=== PATIENT | male | born 1980 | race Caucasian/White ===

== ENCOUNTER 2017-10-17 22:19 | Emergency (ER) | payer BC ==
[2017-10-18] MEDS ORDERED: cefTRIAXone 1 GM, Lidocaine 1% 2.1 ML IM ONE ×2 (00:15)
--- NOTE | 2017-10-18 00:15 | EDM.PDOC ---
ED HPI GENERAL MEDICAL PROBLEM - General Chief Complaint: Neck Problem Stated Complaint: NECK IS SWOLLEN, [id number] Time Seen by Provider: 10/17/17 22:30 Source of Information: Reports: Patient - History of Present Illness INITIAL COMMENTS - FREE TEXT/NARRATIVE: C/O cold x 2 weeks, today noted sore spot under right jaw and tonight face swollen, mild sore throat, no ear pain. O known fever. Right Neck Pain Score (Numeric/FACES): 5 - Related Data Allergies Allergy/AdvReac Type Severity Reaction Status Date / Time No Known Allergies Allergy Verified 10/17/17 22:24 Home Meds: Home Meds . [No Known Home Meds] 10/17/17 [History] Past Medical History - Past Health History Medical/Surgical History: Denies Medical/Surgical History Social & Family History - Tobacco Use Smoking Status *Q: Never Smoker Second Hand Smoke Exposure: No - Recreational Drug Use Recreational Drug Use: No ED ROS ENT - Review of Systems Review Of Systems: See Below Constitutional: Reports: No Symptoms HEENT: Reports: Throat Pain (mild), Other (right lwer facial swelling) Respiratory: Reports: No Symptoms Cardiovascular: Reports: No Symptoms GI/Abdominal: Reports: No Symptoms Musculoskeletal: Reports: No Symptoms Skin: Reports: No Symptoms ED EXAM, ENT - Physical Exam Exam: See Below Exam Limited By: No Limitations General Appearance: Alert, Mild Distress Eye Exam: Bilateral Eye: EOMI Ears: Normal External Exam, Hearing Grossly Normal, Normal TMs. No: Mastoid Swelling, Mastoid Tenderness Nose: Normal Inspection Mouth/Throat: Normal Gums, Pharyngeal Erythema (mild right). No: Hoarse Voice, Oral Ulcers, Peritonsillar Mass Head: Facial Swelling (right), Facial Tenderness (below riight lower jaw lower cheek swolln) Back: Normal Inspection Extremities: Normal Inspection Neurological: Alert, Normal Cognition Skin: Warm, Dry, Intact, Normal Color Course - Vital Signs Last Recorded V/S: Last Vital Signs Temp 99 F 10/17/17 22:21 Pulse 86 10/17/17 22:21 Resp 16 10/17/17 22:21 BP 145/71 H 10/17/17 22:21 Pulse Ox 96 10/17/17 22:21 - Orders/Labs/Meds Orders: Active Orders 24 hr Category Date Time Status CULTURE STREP A CONFIRMATION [RM] Stat Lab 10/17/17 23:38 Results STREP SCRN A RAPID W CULT CONF [RM] Stat Lab 10/17/17 23:38 Results Meds: Medications Discontinued Medications Generic Name Dose Route Start Last Admin Trade Name Margo PRN Reason Stop Dose Admin Ceftriaxone Sodium 1 gm/ 0 gm 10/18/17 00:15 10/18/17 00:23 Lidocaine HCl 2.1 ml IM 10/18/17 00:16 1 inj ONETIME ONE Administration Departure - Departure Time of Disposition: 00:17 Disposition: Home, Self-Care 01 Condition: Good Clinical Impression: Parotitis - Discharge Information Instructions: Lymphadenopathy Referrals: PCP,None [Primary Care Provider] - Forms: ED Department Discharge Additional Instructions: tylenol or ibuprofen for discomfort recheck if increased swelling, redness, difficulty swallowing Augmentin 875 one twice daily for one week - My Orders Last 24 Hours: My Active Orders 10/17/17 23:38 CULTURE STREP A CONFIRMATION [RM] Stat STREP SCRN A RAPID W CULT CONF [RM] Stat - Assessment/Plan Last 24 Hours: My Active Orders 10/17/17 23:38 CULTURE STREP A CONFIRMATION [RM] Stat STREP SCRN A RAPID W CULT CONF [RM] Stat
== END 2017-10-18 00:37 | disposition home or self-care (01) ==
LOC: DL.ED 22:19
DX: K11.20 Sialoadenitis, unspecified (principal)
CPT/HCPCS: 87081; 87430; 96372; 99283; J0696

== ENCOUNTER 2024-06-03 17:55 | Emergency (ER) | payer BC ==
[2024-06-03] MEDS: Acetaminophen/HYDROcodone 325-10 MG Tab PO ONE (18:17)
[2024-06-03] MEDS: Diphtheria,Pertussis(Acell),Tetanus Vaccine 0.5 ML Syringe IM ONE (18:21)
[2024-06-03] MEDS: Lidocaine 1% 30 ML SDV INJECT ONE (18:25)
[2024-06-03] MEDS ORDERED: Bacitracin Oint 1 GM U/D Packet ONE (19:09)
[2024-06-03] MEDS: Cephalexin 500 MG Cap PO ONE (19:22)
[2024-06-03] MEDS: Take Home: Acetaminophen/HYDROcodone 325-5 MG, 5 Tab Pack PO ONE (19:22)
== END 2024-06-03 19:30 | disposition home or self-care (01) ==
LOC: DL.ED 17:55
DX: S81.812A Laceration without foreign body, left lower leg, initial encounter (principal); Z23 Encounter for immunization; W26.8XXA Contact with other sharp object(s), not elsewhere classified, initial encounter
CPT/HCPCS: 12035; 73590-LT; 90471; 90715; 99284; 99284-25; A9270-GY; J3490